=== PATIENT | male | born 1990 | race Caucasian/White ===

== ENCOUNTER 2018-02-14 17:46 | Emergency (ER) | payer SELFPAY ==
[2018-02-14 18:38] VITALS: BP 121/77; PULSE 111; RESP 20; TEMP 38.8; O2SAT 95; BMI 33.9
[2018-02-14 18:39] LABS: UTC Strep Screen (Rapid) Negative (Negative)
[2018-02-14 18:44] LABS: UTC Influenza A Antigen Positive (Negative); UTC Influenza B Antigen Negative (Negative)
--- NOTE | 2018-02-14 18:47 | HMH.EDUTC ---
[facility] [place] Disposition Clinical Impression: Influenza A Disposition: Home, Self-Care Condition on Discharge: Good Instructions: DI for Influenza -- Adult Additional Instructions: Rest, fluids. Off work X 5 days. Prescriptions: Brompheniramine/Pseudoephed/Dm [Bromfed DM Cough Syrup 5mL] 5 - 10 ml PO Q4HP PRN 10 Days #240 syrup PRN Reason: Cough predniSONE [Prednisone 20mg Tab] 20 mg PO BID 5 Days #10 tab Oseltamivir Phosphate [Tamiflu 75mg Capsule] 75 mg PO BID 5 Days #10 cap Forms: Work/School Release Time of Disposition: 18:59 Medical Decision Making - Manuelito Inquiry Pt receiving controlled substance: No Vital Signs: 02/14/18 18:38 Temperature 101.9 F H Temperature Source Oral Pulse Rate [Left Radial] 111 H Respiratory Rate 20 Blood Pressure [Right Arm] 121/77 Blood Pressure Mean [Right Arm] 91 02 Sat by Pulse Oximetry 95 Oxygen Delivery Method Room Air - Lab Data Lab results reviewed: Yes: I reviewed the patient's lab results. Lab Results 02/14/18 18:36: Influenza Type A Ag Positive A, Influenza Type B Ag Negative, Strep Scn Rapid Clinic Negative Orders (Tests/Meds): ORDERS Category Date Time Status Strep Screen Confirmation Stat Micro 02/14/18 18:36 Received [facility] [place] HPI - General Stated complaint: sore throat,cough,fever Time Seen by Provider: 02/14/18 18:48 Mode of Arrival: Family Vehicle Source of Information: Patient Limitations: No Limitations Description of Symptoms (Recalled from Triage Doc. by RN): PT C/O FLU LIKE SYMPTOMS FOR 2 DAYS. HEENT Symptoms (Recalled from RN notes): Yes (FLU LIKE) Resp Symptoms (Recalled from RN notes): Yes (FLU LIKE) Skin Symptoms (Recalled from RN notes): No MS Symptoms (Recalled from RN notes): No Functional Status (Recalled from RN notes): NA - History of Present Illness Provider Complaint: Cough, fever, body aches since yesterday. Relieving factors: none Exacerbating factors: none Associated symptoms: cough, fever/chills, headaches, malaise Treatments prior to arrival: NSAID - Related Data Previous Rx's Medication Instructions Recorded Brompheniramine/Pseudoephed/Dm 5 - 10 ml PO Q4HP PRN 10 Days #240 02/14/18 [Bromfed DM Cough Syrup 5mL] syrup Oseltamivir Phosphate [Tamiflu 75 mg PO BID 5 Days #10 cap 02/14/18 75mg Capsule] predniSONE [Prednisone 20mg 20 mg PO BID 5 Days #10 tab 02/14/18 Tab] Allergies Allergy/AdvReac Type Severity Reaction Status Date / Time No Known Allergies Allergy Verified 02/14/18 18:40 - Worker's Comp Is this a Worker's Comp case?: No H History I have reviewed the patient's past medical history: Yes Medical History: Denies:: Cancer, Diabetes Mellitus Type 1, Diabetes Mellitus Type 2, MRSA Amputation: No Fractures: No - Social History Smoking Status: Current every day smoker Tobacco Type: cigarettes Alcohol Intake: never - Psychiatric History Expresses thoughts of harming self/others: None Suicide Plan Description: No Plan ROS Obtained: Yes All systems reviewed & no additional complaints - Constitutional Constitutional: Reports body ache, Reports fatigue, Reports fever(s), Reports malaise - Respiratory Respiratory: Yes cough Physical Exam - General General appearance: alert, in no apparent distress - Head Head exam: atraumatic, normocephalic, normal inspection - Eye Eye exam: Present: normal appearance, PERRL, EOMI - ENT ENT exam: Present: normal exam, normal oropharynx, mucous membranes moist, TM's normal bilaterally, normal external ear exam - Neck Neck exam: Present: normal inspection, full ROM, trachea midline. Absent: meningismus, lymphadenopathy - Chest Chest inspection: Present: normal inspection, symmetric chest wall rise. Absent: tenderness - Respiratory Respiratory exam: Present: normal lung sounds bilaterally. Absent: respiratory distress - Cardiovascular Cardiovascular exam: Present: regular rate, normal rhythm. Absent:
--- NOTE | 2018-02-14 18:53 | ED_ITS ---
[facility] [place] Impression: Influenza A Disposition: Home, Self-Care Condition on Discharge: Good Instructions: DI for Influenza -- Adult Additional Instructions: Rest, fluids. Off work X 5 days. Prescriptions: Brompheniramine/Pseudoephed/Dm [Bromfed DM Cough Syrup 5mL] 5 - 10 ml PO Q4HP PRN 10 Days #240 syrup PRN Reason: Cough predniSONE [Prednisone 20mg Tab] 20 mg PO BID 5 Days #10 tab Oseltamivir Phosphate [Tamiflu 75mg Capsule] 75 mg PO BID 5 Days #10 cap Forms: Work/School Release Time of Disposition: 18:59 Medical Decision Making - Manuelito Inquiry Pt receiving controlled substance: No Vital Signs: 02/14/18 18:38 Temperature 101.9 F H Temperature Source Oral Pulse Rate [Left Radial] 111 H Respiratory Rate 20 Blood Pressure [Right Arm] 121/77 Blood Pressure Mean [Right Arm] 91 02 Sat by Pulse Oximetry 95 Oxygen Delivery Method Room Air - Lab Data Lab results reviewed: Yes: I reviewed the patient's lab results. Lab Results 02/14/18 18:36: Influenza Type A Ag Positive A, Influenza Type B Ag Negative, Strep Scn Rapid Clinic Negative Orders (Tests/Meds): ORDERS Category Date Time Status Strep Screen Confirmation Stat Micro 02/14/18 18:36 Received [facility] [place] - General Stated complaint: sore throat,cough,fever Time Seen by Provider: 02/14/18 18:48 Mode of Arrival: Family Vehicle Source of Information: Patient Limitations: No Limitations Description of Symptoms (Recalled from Triage Doc. by RN): PT C/O FLU LIKE SYMPTOMS FOR 2 DAYS. HEENT Symptoms (Recalled from RN notes): Yes (FLU LIKE) Resp Symptoms (Recalled from RN notes): Yes (FLU LIKE) Skin Symptoms (Recalled from RN notes): No MS Symptoms (Recalled from RN notes): No Functional Status (Recalled from RN notes): NA - History of Present Illness Provider Complaint: Cough, fever, body aches since yesterday. Relieving factors: none Exacerbating factors: none Associated symptoms: cough, fever/chills, headaches, malaise Treatments prior to arrival: NSAID - Related Data Previous Rx's Medication Instructions Recorded Brompheniramine/Pseudoephed/Dm 5 - 10 ml PO Q4HP PRN 10 Days #240 02/14/18 [Bromfed DM Cough Syrup 5mL] syrup Oseltamivir Phosphate [Tamiflu 75 mg PO BID 5 Days #10 cap 02/14/18 75mg Capsule] predniSONE [Prednisone 20mg 20 mg PO BID 5 Days #10 tab 02/14/18 Tab] Allergies Allergy/AdvReac Type Severity Reaction Status Date / Time No Known Allergies Allergy Verified 02/14/18 18:40 - Worker's Comp Is this a Worker's Comp case?: No H History I have reviewed the patient's past medical history: Yes Medical History: Denies:: Cancer, Diabetes Mellitus Type 1, Diabetes Mellitus Type 2, MRSA Amputation: No Fractures: No - Social History Smoking Status: Current every day smoker Tobacco Type: cigarettes Alcohol Intake: never - Psychiatric History Expresses thoughts of harming self/others: None Suicide Plan Description: No Plan ROS Obtained: Yes All systems reviewed & no additional complaints - Constitutional Constitutional: Reports body ache, Reports fatigue, Reports fever(s), Reports malaise - Respiratory Respiratory: Yes cough Physical Exam - General General appearance: a
[2018-02-14 19:25] VITALS: BP 119/69; PULSE 100; RESP 20; TEMP 38.6; O2SAT 96
== END 2018-02-14 19:26 | disposition home or self-care (01) ==
PROVIDERS: Emergency Provider Physician Assistant
DX: J10.1 Influenza due to other identified influenza virus with other respiratory manifestations (principal)
CPT/HCPCS: 87804; 87880; 99202

== ENCOUNTER 2020-07-24 15:29 | Emergency (ER) | payer MEDICAID, SELFPAY ==
--- NOTE | 2020-07-24 15:42 | XR_ITS ---
PROCEDURE: XR RIBS RT MIN 3V W CXR1V CLINICAL INDICATION: wrestling injury Posttraumatic pain COMPARISON: No exams were available for comparison FINDINGS: Frontal view of the chest shows no acute finding. Multiple views of the right ribs show no displaced fractures or lytic or blastic change. IMPRESSION: Negative right ribs with chest Dictated by: Vic Trevino MD 07/24/2020 16:48 Vic Trevino MD in [place] 07/24/2020 16:48
[2020-07-24 16:00] VITALS: BP 164/97; PULSE 71; RESP 14; TEMP 36.9; O2SAT 97; BMI 32.5
--- NOTE | 2020-07-24 16:39 | HMH.EDUTC ---
[facility] [place] Disposition Clinical Impression: Contusion of rib on left side Qualifiers: Encounter type: initial encounter Qualified Code(s): S20.212A - Contusion of left front wall of thorax, initial encounter Disposition: Home, Self-Care Condition on Discharge: Good Instructions: DI for Rib Contusion Additional Instructions: Rest, don't be lifting anything heavy or twisting for the next few weeks. Take ibuprofen for pain. I sent in a prescription to your pharmacy. Follow up with your regular doctor. GO TO THE ER FOR ANY WORSENING SYMPTOMS Prescriptions: Ibuprofen [Ibuprofen 600mg Tablet] 600 mg PO Q6HP PRN #30 tab PRN Reason: Mild Pain Transmission Status: Received by [id number] Referrals: PCP,No [Primary Care Provider] - Forms: Work/School Release Time of Disposition: 16:42 Medical Decision Making - Medical Records Medical records reviewed: No: I reviewed the patient's medical records. - Manuelito Inquiry Pt receiving controlled substance: No Vital Signs: 07/24/20 16:00 07/24/20 16:46 Temperature 98.4 F 98.4 F Temperature Source Oral Pulse Rate 71 Pulse Rate [Right Brachial] 71 Respiratory Rate 14 14 Blood Pressure 164/97 H Blood Pressure [Right Arm] 164/97 H Blood Pressure Mean [Right Arm] 119 Blood Pressure Source [Right Arm] Automatic Cuff Blood Pressure Position [Right Arm] Sitting 02 Sat by Pulse Oximetry 97 Oxygen Delivery Method Room Air - Radiology Data #1 Image(s): Chest Image Reviewed: Yes I reviewed the patient's radiology image, Yes I have reviewed radiologist's interpretation Preliminary Findings: No Fracture Seen PROCEDURE: XR RIBS RT MIN 3V W CXR1V CLINICAL INDICATION: wrestling injury Posttraumatic pain COMPARISON: No exams were available for comparison FINDINGS: Frontal view of the chest shows no acute finding. Multiple views of the right ribs show no displaced fractures or lytic or blastic change. IMPRESSION: Negative right ribs with chest Dictated by: Vic Trevino MD 07/24/2020 16:48 Vic Trevino MD in [place] 07/24/2020 16:48 [facility] [place] HPI - General Stated complaint: AO [id number] injured under left arm Time Seen by Provider: 07/24/20 16:20 Mode of Arrival: Ambulatory Source of Information: Patient Limitations: No Limitations Description of Symptoms (Recalled from Triage Doc. by RN): PATIENT WAS WRESTLING APPROX 2 WEEKS AGO AND INJURED LEFT RIB AREA HEENT Symptoms (Recalled from RN notes): No Resp Symptoms (Recalled from RN notes): No Skin Symptoms (Recalled from RN notes): No MS Symptoms (Recalled from RN notes): Yes Functional Status (Recalled from RN notes): WNL - History of Present Illness Provider Complaint: He states that while in a wrestling match 2 weeks ago he was slammed into a line of chairs that were bolted together. He states that he has had left rib pain since then. He denies any shortness of breath or other complaints. - Related Data Previous Rx's Medication Instructions Recorded Ibuprofen [Ibuprofen 600mg 600 mg PO Q6HP PRN #30 tab 07/24/20 Tablet] Allergies Allergy/AdvReac Type Severity Reaction Status Date / Time No Known Allergies Allergy Verified 02/14/18 18:40 - Worker's Comp Is this a Worker's Comp case?: No [facility] History - Hepatitis A Screen Drug use history?: No High risk sexual behaviors?: No History of sexually transmitted infection?: No Currently employed?: No Childcare worker?: No Do you have indoor plumbing?: Yes Do you have electricity?: Yes Attestation statement:: This patient has been screened for Hepatitis A risk factors. I have reviewed the patient's past medical history: Yes Medical History: Denies:: Cancer, Diabetes Mellitus Type 1, Diabetes Mellitus Type 2, MRSA Amputation: No Fractures: No - Social History Smoking Status: Current every day smoker Tobacco Type: cigarettes # Packs/Day (cigarettes): 1 Alcohol Intake: never Occupational S
[2020-07-24 16:46] VITALS: BP 164/97; PULSE 71; RESP 14; TEMP 36.9; O2SAT 97
== END 2020-07-24 16:50 | disposition home or self-care (01) ==
PROVIDERS: Emergency Provider Nurse Practitioner Family
DX: S20.212A Contusion of left front wall of thorax, initial encounter (principal); W51.XXXA Accidental striking against or bumped into by another person, initial encounter; Y93.72 Activity, wrestling; Y92.89 Other specified places as the place of occurrence of the external cause; F17.210 Nicotine dependence, cigarettes, uncomplicated
CPT/HCPCS: 71101; 99201

== ENCOUNTER 2021-07-27 19:40 | Emergency (ER) | payer SELFPAY ==
--- NOTE | 2021-07-27 20:54 | HMH.EDUTC ---
[facility] [place] Disposition Clinical Impression: Low back pain Qualifiers: Chronicity: acute Back pain laterality: bilateral Sciatica presence: with sciatica Sciatica laterality: bilateral sciatica Qualified Code(s): M54.42 - Lumbago with sciatica, left side Low back strain Qualifiers: Encounter type: initial encounter Qualified Code(s): S39.012A - Strain of muscle, fascia and tendon of lower back, initial encounter Disposition: Home, Self-Care Condition on Discharge: Good Additional Instructions: Go home and rest. It would be best if you rested tomorrow too. No heavy lifting. No twisting. Take the oral medications as directed. The muscle relaxer (cyclobenzaprine) will make you drowsy, so don't drive or operate heavy machinery after taking it. Follow up with your regular doctor. GO TO THE ER FOR ANY WORSENING SYMPTOMS OR CONCERN, ESPECIALLY BOWEL OR BLADDER ISSUES, SADDLE AREA NUMBNESS, FEVER, ETC Prescriptions: Ibuprofen [Ibuprofen 800mg Tablet] 800 mg PO Q8HP PRN #30 tab PRN Reason: Moderate Pain Transmission Status: Received by [id number] Cyclobenzaprine HCl [Cyclobenzaprine 10mg Tab] 10 mg PO BIDP PRN #20 tab PRN Reason: Muscle Spasm Transmission Status: Received by [id number] Referrals: Danilo Jack MD [Primary Care Provider] - Forms: Work/School Release Time of Disposition: 21:34 Medical Decision Making - Medical Records Medical records reviewed: No: I reviewed the patient's medical records. - Manuelito Inquiry Pt receiving controlled substance: No Vital Signs: 07/27/21 21:03 07/27/21 21:49 Temperature 98.3 F 0 F L Temperature Source Oral Pulse Rate 0 L Pulse Rate [Left] 62 Respiratory Rate 16 0 L Blood Pressure 0/0 L Blood Pressure [Right Arm] 106/59 L Blood Pressure Mean [Right Arm] 74 02 Sat by Pulse Oximetry 98 - Radiology Data #1 Image(s): L-Spine Image Reviewed: Yes I reviewed the patient's radiology image, Yes I have reviewed radiologist's interpretation [facility] [place] HPI - General Stated complaint: pack pain no accident Time Seen by Provider: 07/27/21 20:54 - History of Present Illness Provider Complaint: He states that over the past several weeks he has had low back pain that radiates down both his legs at times. He denies any known injury or fall. He denies any dysuria or difficulty urinating. - Related Data Previous Rx's Medication Instructions Recorded Cyclobenzaprine HCl 10 mg PO BIDP PRN #20 tab 07/27/21 [Cyclobenzaprine 10mg Tab] Ibuprofen [Ibuprofen 800mg 800 mg PO Q8HP PRN #30 tab 07/27/21 Tablet] Allergies Allergy/AdvReac Type Severity Reaction Status Date / Time No Known Allergies Allergy Verified 05/29/21 15:04 [facility] History - Hepatitis A Screen Attestation statement:: This patient has been screened for Hepatitis A risk factors. I have reviewed the patient's past medical history: Yes Medical History: Denies:: Cancer, Diabetes Mellitus Type 1, Diabetes Mellitus Type 2, MRSA Other Surgeries: Yes: Other (corrective surgery for Club foot) Amputation: No Fractures: No - Social History Smoking Status: Current every day smoker Tobacco Type: cigarettes # Packs/Day (cigarettes): 1 Alcohol Intake: never Substance Use Type: denies use Occupational Status: employed Housing: apartment Household Members: friend(s) Family Hx:: Cancer ROS Obtained: Yes All systems reviewed & no additional complaints - Constitutional Constitutional: Denies chills, Denies fever(s) - Eyes Eyes: Denies eye discharge - ENT Ears, Nose, Mouth, and Throat: Denies dizziness, Denies otalgia, Denies sore throat - Cardiovascular Cardiovascular: Denies chest pain - Respiratory Respiratory: Denies chest congestion, Denies cough - Gastrointestinal Gastrointestingal: Denies: abdominal pain, diarrhea, nausea, vomiting - Genitourinary Male Genitourinary: Denies difficulty urinating - Musculoskeletal Muscu
--- NOTE | 2021-07-27 21:01 | XR_ITS ---
PROCEDURE INFORMATION: Exam: XR Lumbosacral Spine Exam date and time: 07/27/2021 9:01 PM Age: 31 years old Clinical indication: Low back pain; Additional info: Pain low back no trauma TECHNIQUE: Imaging protocol: XR of the lumbosacral spine. Views: 2 or 3 views. COMPARISON: ABDPELW/O CT ABD PELVIS W/O CONTRAST 11/17/2014 10:51 PM FINDINGS: Bones/joints: No acute fracture. Normal alignment. Soft tissues: Unremarkable. IMPRESSION: No acute findings.
[2021-07-27 21:03] VITALS: BP 106/59; PULSE 62; RESP 16; TEMP 36.8; O2SAT 98; BMI 35.5
[2021-07-27 21:49] VITALS: BP 0/0; PULSE 0; RESP 0; TEMP -17.7; TEMP 0
== END 2021-07-27 21:49 | disposition home or self-care (01) ==
PROVIDERS: Emergency Provider Nurse Practitioner Family; PCP Emergency Medicine
DX: S39.012A Strain of muscle, fascia and tendon of lower back, initial encounter (principal); M54.42 Lumbago with sciatica, left side; F17.210 Nicotine dependence, cigarettes, uncomplicated
CPT/HCPCS: 72100; 99203; G0463